=== PATIENT | male | born 1965 | race Caucasian/White ===

== ENCOUNTER 2016-08-31 01:56 | Emergency (ER) | payer OTHER ==
[~2016-08-31] VITALS: Ht 177.8 cm; Wt 85.5 kg
[2016-08-31 02:00] VITALS: Ht 177.8 cm; Wt 85.5 kg
[2016-08-31] MEDS ORDERED: KETOROLAC 60 MG INJ IM STA (03:42)
--- NOTE | 2016-08-31 04:19 | RADRPT ---
PROCEDURE: XR Left Foot. CLINICAL INDICATION: Pain in left foot TECHNIQUE: AP, lateral and oblique views of the left foot was obtained. The images were reviewed on a PACS workstation. COMPARISON: None. FINDINGS: The bones of the foot appear intact, with no evidence of fracture, dislocation, or subluxation. Very small posterior calcaneal spur. The joint spaces are preserved. 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 The bone mineralization is normal. No significant soft tissue swelling is seen. IMPRESSION: Very small posterior calcaneal spur. 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 Otherwise unremarkable examina tion. RPTAT: HJES .Rahul Miranda MD, MD Date Time Electronically viewed and signed by .Rahul Miranda MD, on 08/31/2016 04:19 .S/
[2016-08-31] MEDS ORDERED: ACET500C5 PO (04:25)
[2016-08-31] MEDS ORDERED: HYDR-906 PO (04:29)
[2016-08-31] MEDS ORDERED: IBUP-1542 PO (04:29)
--- NOTE | 2016-08-31 04:29 | ERD ---
ER Documentation Chief Complaint Date/Time DATE: 08/31/16 TIME: 04:22 Chief Complaint left foot pain since yesterday, denies injury HPI 50-year-old male presents to emergency department for complaining of left foot pain that started yesterday. Patient was standing most of the day, was putting a lot of pressure on the left foot, tonight, started to have the pain more worse. Patient described pain as throbbing pain, 6/10 scale, is worse upon walking. Patient did not take any medications up with symptoms. Patient denies any numbness or tingling. Patient denies any deformity. Patient denies any direct trauma on affected area. ROS All systems reviewed and are negative except as per history of present illness. Medications Home Meds Active Scripts Hydrocodone/Acetaminophen (Nada 5-325 Tablet) 1 Each Tablet, 1 TAB PO Q6H Y for SEVERE PAIN LEVEL 7-10, #20 TAB Prov:JNAET THOMAS NP 08/31/16 Ibuprofen* (Motrin*) 600 Mg Tab, 600 MG PO Q6H Y for PAIN AND OR ELEVATED TEMP, #30 TAB Prov:JANET THOMAS [employer] 08/31/16 Reported Medications Acetaminophen* (Tylophen*) Unknown Strength Capsule, PO Q6H Y for PAIN AND OR ELEVATED TEMP, #20 CAP 08/31/16 Allergies Allergies: Coded Allergies: No Known Allergy (Unverified , 08/31/16) PMhx/Soc History of Surgery: No Anesthesia Reaction: No Hx Neurological Disorder: No Hx Respiratory Disorders: No Hx Cardiac Disorders: No Hx Psychiatric Problems: No Hx Miscellaneous Medical Probl: No Hx Alcohol Use: Yes (SOCIALLY) Hx Substance Use: No Hx Tobacco Use: No FmHx Family History: No coronary disease, No diabetes, No other Physical Exam Vitals Vital Signs Date Time Temp Pulse Resp B/P Pulse Ox O2 Delivery O2 Flow Rate FiO2 08/31/16 02:00 98.3 92 20 146/70 98 Physical Exam GENERAL: The patient is well developed and appropriate for usual state of health, in no apparent distress. CHEST: Clear to auscultation bilaterally. There are no rales, wheezes or rhonchi. HEART: Regular rate and rhythm. No murmurs, clicks, rubs or gallops. No S3 or S4. ABDOMEN: Soft, nontender and nondistended. Good bowel sounds. No rebound or guarding. No gross peritonitis. No gross organomegaly or masses. No Johnson sign or McBurney point tenderness. BACK: No midline or flank tenderness. EXTREMITIES: Able to do full range of motion of the left foot and ankle without any restriction, mild tenderness on palpation on posterior aspect of the left foot. Equal pulses bilaterally. Full range of motion of the joints of the body. Grossly neurovascularly intact. NEURO: Alert and oriented. Cranial nerves 2-12 intact. Motor strength in all 4 extremities with 5/5 strength. Sensation grossly intact. Normal speech and gait. SKIN: There is no apparent rash or petechia. The skin is warm and dry. HEMATOLOGIC AND LYMPHATIC: There is no evidence of excessive bruising or lymphedema. No gross cervical, axillary, or inguinal lymphadenopathy. Results 24 hrs Current Medications Medications (Trade) Dose Ordered Sig/Medardo Route PRN Reason Start Time Stop Time Status Last Admin Dose Admin Ketorolac Tromethamine (Toradol) 60 mg ONCE STAT IM 08/31/16 03:42 08/31/16 03:43 DC 08/31/16 04:13 Patient was given medication for pain here in emergency department, after treatment, patient verbalized feeling much better. Patient's pain is improved. PROCEDURE: XR Left Foot. CLINICAL INDICATION: Pain in left foot TECHNIQUE: AP, lateral and oblique views of the left foot was obtained. The images were reviewed on a PACS workstation. COMPARISON: None. FINDINGS: The bones of the foot appear intact, with no evidence of fracture, dislocation, or subluxation. Very small posterior calcaneal spur. The joint spaces are preserved. 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 The bone mineralization is normal. No significant soft tissue swelling is seen. IMPRESSION: Very small posterior calcaneal spur. 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 Otherwise unremarkable examination. RPTAT: HJES .Rahul Miranda MD, Date Time Electronically viewed and signed by .Rahul Miranda MD, MD on 08/31/2016 04:19 .S/ CC: JANET THOMAS NP Procedures/MDM Medical Decision Making: Patient's pain is most likely consistent with a contusion or a sprain. There is no suspicion for neurovascular compromise. Patient has intact sensation and circulation of the affected extremity. There is low suspicion for septic arthritis. Patient does not have any fever. Radiology exams of the affected area does not show any fracture or dislocation. Disposition: Home. Patient is given prescription for ibuprofen for pain, Nada for severe pain. Patient was advised to elevate the affected area and apply ice on affected area. Patient was advised that if symptoms are worse, numbness, tingling, high fever, unable to move joint, worsening symptoms, to return to emergency department immediately. Otherwise, patient is advised to follow up with the primary care doctor in 5-7 days for reevaluation of symptoms. Departure Diagnosis: Primary Impression: Foot pain Laterality: left Qualified Code: M79.672 - Left foot pain Additional Impression: Heel spur Laterality: left Qualified Code: M77.32 - Heel spur, left Condition: Stable Patient Instructions: Heel Spur, Sprain Foot Additional Instructions: Patient is given prescription for ibuprofen for pain. Patient was advised to elevate the affected area and apply ice on affected area. Patient was advised that if symptoms are worse, numbness, tingling, high fever, unable to move joint , worsening symptoms, to return to emergency department immediately. Otherwise, patient is advised to follow up with the primary care doctor in 5-7 days for reevaluation of symptoms. JANET THOMAS NP Aug 31, 2016 04:28
[2016-08-31 04:46] VITALS: BP 119/71; PULSE 70; RESP 16
== END 2016-08-31 04:47 | disposition home or self-care (01) ==
LOC: FTE 01:56
DX: M79.672 Pain in left foot (principal); M77.32 Calcaneal spur, left foot
CPT/HCPCS: 73630; 96372; J1885; Z7502